=== PATIENT | female | born 1960 | race Caucasian/White ===

== ENCOUNTER 2020-04-29 13:51 | Emergency (ER) | payer BC, OTHER ==
[2020-04-29 14:38] VITALS: O2SAT 98
--- NOTE | 2020-04-29 15:29 | ERPHSYRPT ---
- History of Present Illness Time Seen by Provider: 04/29/20 15:00 Source: patient Exam Limitations: no limitations Patient Subjective Stated Complaint: Pt states "I was at work and a part came flying out of the machine and hit me and cut my shorts and cut my belly." Triage Nursing Assessment: Pt presented alert and oriented X 3, skin pwd Pt ambulates with an upright steady gait, able to speak in clear full sentences. PT has abrasion with several small lacertaions noted to right lower abodmen with slight swelling noted. Physician History: 59 years old female presented in the ER with chief complaint of abdominal wall abrasion and laceration. Patient [place] and hit/scratched her on anterior abdominal wall causing abrasion and small laceration with minimal bleeding which is stopped now. Denies any abdominal pain. She is having mild burning sensation which is more with touching and better with resting. No injury anywhere else. Unsure about tetanus status. Timing/Duration: today, sudden Quality: burning, painful Severity: mild Location: torso Allergies/Adverse Reactions: Penicillins Allergy (Verified 03/09/12 23:31) Home Medications: No Reportable Medications [No Reported Medications] 04/29/20 [History] Hx Tetanus, Diphtheria Vaccination/Date Given: No Hx Influenza Vaccination/Date Given: Yes Hx Pneumococcal Vaccination/Date Given: No Immunizations Up to Date: Yes Travel Risk - International Travel Have you traveled outside of the country in past 3 weeks: No - Coronavirus Screening Are you exhibiting any of the following symptoms?: No Close contact with a COVID-19 positive Pt in past 14-21 Days: No - Review of Systems Constitutional: No Symptoms Eyes: No Symptoms Ears, Nose, & Throat: No Symptoms Respiratory: No Symptoms Cardiac: No Symptoms Abdominal/Gastrointestinal: Abdominal Pain Genitourinary Symptoms: No Symptoms Skin: Skin Lesions Neurological: No Symptoms Psychological: No Symptoms Endocrine: No Symptoms Hematologic/Lymphatic: No Symptoms Immunological/Allergic: No Symptoms - Past Medical History Pertinent Past Medical History: No - Past Surgical History Past Surgical History: No - Social History Smoking Status: Current every day smoker How long have you smoked: years Exposure to second hand smoke: Yes Drug Use: none Patient Lives Alone: No - Female History Hx Now: No - Nursing Vital Signs Nursing Vital Signs: Initial Vital Signs Temperature 98.1 F 04/29/20 14:34 Pulse Rate 65 04/29/20 14:34 Respiratory Rate 20 04/29/20 14:34 Blood Pressure 181/94 04/29/20 14:34 O2 Sat by Pulse Oximetry 98 04/29/20 14:34 Pain Scale Pain Intensity 1 - Physical Exam General Appearance: no apparent distress Eye Exam: eyes nml inspection Ears, Nose, Throat Exam: normal ENT inspection Neck Exam: normal inspection, supple, full range of motion Respiratory Exam: normal breath sounds Cardiovascular Exam: regular rate/rhythm, normal heart sounds Gastrointestinal/Abdomen Exam: soft, tenderness (Linear abrasions across the abdominal wall and around the bellybutton area with a small superficial skin cut about 4 cm with no active bleeding or spurting. No abdominal tenderness otherwise.) Back Exam: normal inspection Extremity Exam: normal inspection Neurologic Exam: alert, oriented x 3, cooperative Skin Exam: normal color SpO2 Interpretation: normal SpO2: 98 O2 Delivery: Room Air Procedures - Laceration/Wound Repair Anterior Abdomen Wound Location: abdomen Wound Length (cm): 4 Wound's Depth, Shape: superficial, linear Wound Explored: clean Irrigated: Yes Hibiclens Prep: Yes Wound Repaired With: Steri-strips, Dermabond Ordered Tests: Medication Summary Discontinued Medications Generic Name Dose Route Start Last Admin Trade Name Hima PRN Reason Stop Dose Admin Diphtheria/Tetanus/Acell Pertussis 0.5 ml 04/29/20 15:47 04/29/20 15:50 Adacel Vial IM 04/29/20 15:48 0.5 ml .ONCE ONE Administration Diphtheria/Tetanus/Acell Pertussis Confirm 04/29/20 15:49 Adacel Vial Administered 04/29/20 15:50 Dose 0.5 ml IM .STK-MED ONE - Progress Progress: improved, pain not gone completely Progress Note: 04/29/20 15:28 Is offered pain medication which she refused. Tetanus is updated. Discussed with patient about option of stitching versus Dermabond and Steri-Strip and she wants to go for Dermabond. She does not have any abdominal tenderness otherwise. Superficial injury. Recommended outpatient follow-up. Counseled pt/family regarding: diagnosis, need for follow-up - Departure Departure Disposition: Home Clinical Impression: Laceration of abdominal wall Qualifiers: Encounter type: initial encounter Qualified Code(s): S31.119A - Laceration without foreign body of abdominal wall, unspecified quadrant without penetration into peritoneal cavity, initial encounter Condition: Stable Critical Care Time: No Referrals: DOCTOR,NO FAMILY [Primary Care Provider] - JACQUELINE MELENDEZ [ACTIVE STAFF] - Follow Up with PCP/3 days Instructions: Laceration Repair With Glue (DC) Additional Instructions: Tylenol/ibuprofen as needed for pain. Keep it clean. Follow-up with primary care for reevaluation. Return to ER for abdominal pain, swelling, discharge, fever chills etc.
[2020-04-29 15:39] VITALS: BP 139/84; PULSE 62
[2020-04-29] MEDS ORDERED: Adacel Vial IM ONE ×2 (15:47→15:49)
== END 2020-04-29 15:54 | disposition home or self-care (01) ==
LOC: ED 13:51
DX: S31.113A Laceration without foreign body of abdominal wall, right lower quadrant without penetration into peritoneal cavity, initial encounter (principal); W31.89XA Contact with other specified machinery, initial encounter
CPT/HCPCS: 12002; 90471; 90715; 99283